=== PATIENT | female | born 1965 | race Caucasian/White ===

== ENCOUNTER 2020-08-16 12:53 | Inpatient (IN) | payer OTHER, SELFPAY ==
[~2020-08-16] VITALS: Ht 170.2 cm; Wt 74.8 kg
[2020-08-16 15:36] LABS: HEMOGLOBIN 14.4 gm/dl (12.3-15.3); RED BLOOD COUNT 4.5 M/UL (4.00-5.10)
[2020-08-16 15:58] LABS: BUN/CREATININE RATIO 10 (0-10)
[2020-08-17 04:46] LABS: HEMOGLOBIN 12.1 gm/dl (12.3-15.3); RED BLOOD COUNT 3.85 M/UL (4.00-5.10)
[2020-08-17 04:53] LABS: BUN/CREATININE RATIO 11 (0-10)
[2020-08-18 07:01] LABS: HEMOGLOBIN 12.7 gm/dl (12.3-15.3); RED BLOOD COUNT 4.14 M/UL (4.00-5.10); WHITE BLOOD COUNT 10.7 K/UL (4.5-11.0)
[2020-08-18 07:29] LABS: BUN/CREATININE RATIO 10 (0-10)
[2020-08-19 05:41] LABS: BUN/CREATININE RATIO 10 (0-10)
[2020-08-20 07:58] LABS: BUN/CREATININE RATIO 9 (0-10)
--- NOTE | 2020-08-21 02:14 | NUR ---
2100- ASKED PATIENT IF SHE WANTED ME TO GO AHEAD AND UNWRAP AND APPLY MORE BETADINE TO HER FOOT AND REWRAP IT, SHE STATES SHE WOULD RATHER WAIT UNTIL IN THE MORNING.
[2020-08-21 03:42] LABS: HEMOGLOBIN 12.1 gm/dl (12.3-15.3); RED BLOOD COUNT 3.87 M/UL (4.00-5.10); WHITE BLOOD COUNT 9.5 K/UL (4.5-11.0)
[2020-08-21 04:11] LABS: BUN/CREATININE RATIO 7 (0-10)
--- NOTE | 2020-08-21 17:18 | NUR ---
REPORT GIVEN TO [facility] ADMITTING NURSE FOR ICU.
[2020-08-22 05:32] LABS: HEMOGLOBIN 10.9 gm/dl (12.3-15.3); RED BLOOD COUNT 3.53 M/UL (4.00-5.10)
[2020-08-22 05:41] LABS: BUN/CREATININE RATIO 8 (0-10)
[2020-08-22] MEDS ORDERED: NICOTINE PATCH1 EAC1 TD (15:57)
[2020-08-22] MEDS ORDERED: LORTAB 7.5-3251 EACH PO (15:57)
[2020-08-22] MEDS ORDERED: CRESTOR 10 MG T10 MG PO (15:57)
[2020-08-22] MEDS ORDERED: ASPIRIN EC81 MG PO (15:57)
[2020-08-22] MEDS ORDERED: CLOPIDOGREL75 MG PO (15:57)
[2020-08-22] MEDS ORDERED: LISINOPRIL10 MG PO (15:57)
[2020-08-22] MEDS ORDERED: LANTUS INS100 UTS/M1 SC (15:57)
[2020-08-23 05:07] LABS: HEMOGLOBIN 11.6 gm/dl (12.3-15.3); RED BLOOD COUNT 3.7 M/UL (4.00-5.10)
[2020-08-23 05:24] LABS: BUN/CREATININE RATIO 15 (0-10)
[2020-08-23] MEDS ORDERED: ROCEPHIN 1 GM AD1 GM IV (10:18)
[2020-08-23] MEDS ORDERED: ZYVOX600 MG PO (10:18)
== END 2020-08-23 16:29 | disposition home or self-care (01) | DRG 270 ==
LOC: ER1 12:53 → CDU 16:00 → M/S 16:00 → 2 EAST 08-21 16:25 → CCU 08-22 09:35
PROVIDERS: Emergency Medicine; Family Medicine; Physician Assistant Medical; Surgery; ADMIT Internal Medicine Infectious Disease
PROC: 04CK3ZZ Extirpation of Matter from Right Femoral Artery, Percutaneous Approach (ICD-10-PCS; 2020-08-21)
PROC: 0Y6T0Z1 Detachment at Right 3rd Toe, High, Open Approach (ICD-10-PCS; 2020-08-21)
PROC: 04CM3ZZ Extirpation of Matter from Right Popliteal Artery, Percutaneous Approach (ICD-10-PCS; 2020-08-21)
PROC: 047K3Z1 Dilation of Right Femoral Artery using Drug-Coated Balloon, Percutaneous Approach (ICD-10-PCS; 2020-08-21)
PROC: 047M3Z1 Dilation of Right Popliteal Artery using Drug-Coated Balloon, Percutaneous Approach (ICD-10-PCS; 2020-08-21)
PROC: 047P3ZZ Dilation of Right Anterior Tibial Artery, Percutaneous Approach (ICD-10-PCS; 2020-08-21)
PROC: B41FYZZ Fluoroscopy of Right Lower Extremity Arteries using Other Contrast (ICD-10-PCS; 2020-08-21)
PROC: B41GYZZ Fluoroscopy of Left Lower Extremity Arteries using Other Contrast (ICD-10-PCS; principal; 2020-08-21 10:15)
PROC: 02HV33Z Insertion of Infusion Device into Superior Vena Cava, Percutaneous Approach (ICD-10-PCS; 2020-08-23)
PROC: B548ZZA Ultrasonography of Superior Vena Cava, Guidance (ICD-10-PCS; 2020-08-23)
DX: E11.52 Type 2 diabetes mellitus with diabetic peripheral angiopathy with gangrene (principal); A48.0 Gas gangrene; M86.8X7 Other osteomyelitis, ankle and foot; E11.65 Type 2 diabetes mellitus with hyperglycemia; F17.210 Nicotine dependence, cigarettes, uncomplicated; I16.0 Hypertensive urgency; L03.031 Cellulitis of right toe; Z83.3 Family history of diabetes mellitus; Z82.49 Family history of ischemic heart disease and other diseases of the circulatory system; Z91.19 Patient's noncompliance with other medical treatment and regimen; E11.69 Type 2 diabetes mellitus with other specified complication; Z20.828 Contact with and (suspected) exposure to other viral communicable diseases; Z90.49 Acquired absence of other specified parts of digestive tract
CPT/HCPCS: 36415; 71045; 73630; 75635; 76000; 80048; 80053; 80061; 82962; 83036; 83605; 83735; 85025; 85027; 85652; 86140; 86850; 86900; 86901; 87040; 87070; 87205; 93005; 93925; 96365; 96366; 96368; 97162; 97165; 99285; C1714; C1725; C1769; C1887; C2623; J0696; J1580; J1644; J2001; J2250; J2270; J2543; J2704; J2720; J3010; J3370; J7030; J7040; J7050; J7120; Q9962; Q9967; U0002

== ENCOUNTER → 2020-08-24 | Outpatient (CLI) | payer OTHER, SELFPAY ==
[~2020-08-24] VITALS: Ht 170.2 cm; Wt 74.8 kg
[~2020-08-24] MED LIST: ASPIRIN EC81 MG PO; CLOPIDOGREL75 MG PO; CRESTOR 10 MG T10 MG PO; LANTUS INS100 UTS/M1 SC; LISINOPRIL10 MG PO; LORTAB 7.5-3251 EACH PO; NICOTINE PATCH1 EAC1 TD; ROCEPHIN 1 GM AD1 GM IV; ZYVOX600 MG PO
== END ==
LOC: OPSV 07:52
DX: M86.8X7 Other osteomyelitis, ankle and foot (principal); I96 Gangrene, not elsewhere classified
CPT/HCPCS: 96365; J0696

== ENCOUNTER → 2020-08-25 | Outpatient (CLI) | payer OTHER, SELFPAY ==
[~2020-08-25] VITALS: Ht 170.2 cm; Wt 74.8 kg
== END ==
LOC: OPSV 07:39
DX: M86.8X7 Other osteomyelitis, ankle and foot (principal); I96 Gangrene, not elsewhere classified
CPT/HCPCS: 96365; J0696

== ENCOUNTER → 2020-08-26 | Outpatient (CLI) | payer OTHER, SELFPAY ==
[~2020-08-26] VITALS: Ht 170.2 cm; Wt 74.8 kg
== END ==
LOC: OPSV 07:38
DX: M86.8X7 Other osteomyelitis, ankle and foot (principal); I96 Gangrene, not elsewhere classified
CPT/HCPCS: 96365; J0696

== ENCOUNTER → 2020-08-27 | Outpatient (CLI) | payer OTHER, SELFPAY | LOC: WCC 09:48 | DX: I73.9 Peripheral vascular disease, unspecified (principal); L97.516 Non-pressure chronic ulcer of other part of right foot with bone involvement without evidence of necrosis; E08.21 Diabetes mellitus due to underlying condition with diabetic nephropathy; F17.291 Nicotine dependence, other tobacco product, in remission | CPT/HCPCS: G0463 ==

== ENCOUNTER → 2020-08-27 | Outpatient (CLI) | payer OTHER, SELFPAY ==
[~2020-08-27] VITALS: Ht 170.2 cm; Wt 74.8 kg
== END ==
LOC: OPSV 07:27
DX: M86.8X7 Other osteomyelitis, ankle and foot (principal); I96 Gangrene, not elsewhere classified
CPT/HCPCS: 96365; J0696

== ENCOUNTER → 2020-08-28 | Outpatient (CLI) | payer OTHER, SELFPAY | LOC: OPSV 08:00 | DX: M86.8X7 Other osteomyelitis, ankle and foot (principal); I96 Gangrene, not elsewhere classified | CPT/HCPCS: 96365; J0696 ==

== ENCOUNTER → 2020-08-29 | Outpatient (CLI) | payer OTHER, SELFPAY | LOC: WCC 08:04 | DX: T81.30XA Disruption of wound, unspecified, initial encounter (principal); E11.40 Type 2 diabetes mellitus with diabetic neuropathy, unspecified; Y83.5 Amputation of limb(s) as the cause of abnormal reaction of the patient, or of later complication, without mention of misadventure at the time of the procedure | CPT/HCPCS: G0463 ==

== ENCOUNTER → 2020-08-29 | Outpatient (CLI) | payer OTHER, SELFPAY ==
[~2020-08-29] VITALS: Ht 170.2 cm; Wt 74.8 kg
== END ==
LOC: OPSV 07:27
DX: M86.8X7 Other osteomyelitis, ankle and foot (principal); I96 Gangrene, not elsewhere classified
CPT/HCPCS: 96365

== ENCOUNTER → 2020-08-30 | Outpatient (CLI) | payer OTHER, SELFPAY | LOC: OPSV 07:25 | DX: M86.8X7 Other osteomyelitis, ankle and foot (principal); I96 Gangrene, not elsewhere classified | CPT/HCPCS: 96365; J0696 ==

== ENCOUNTER → 2020-08-31 | Outpatient (CLI) | payer OTHER, SELFPAY | LOC: WCC 08:16 | DX: E08.21 Diabetes mellitus due to underlying condition with diabetic nephropathy (principal); E08.621 Diabetes mellitus due to underlying condition with foot ulcer; L97.516 Non-pressure chronic ulcer of other part of right foot with bone involvement without evidence of necrosis; I73.9 Peripheral vascular disease, unspecified; F17.291 Nicotine dependence, other tobacco product, in remission | CPT/HCPCS: G0463 ==

== ENCOUNTER → 2020-08-31 | Outpatient (CLI) | payer OTHER, SELFPAY ==
[~2020-08-31] VITALS: Ht 170.2 cm; Wt 74.8 kg
== END ==
LOC: OPSV 06:56
DX: M86.8X7 Other osteomyelitis, ankle and foot (principal); I96 Gangrene, not elsewhere classified
CPT/HCPCS: 96365; J0696

== ENCOUNTER → 2020-09-01 | Outpatient (CLI) | payer OTHER, SELFPAY ==
[~2020-09-01] VITALS: Ht 170.2 cm; Wt 74.8 kg
== END ==
LOC: OPSV 07:09
DX: M86.8X7 Other osteomyelitis, ankle and foot (principal); I96 Gangrene, not elsewhere classified
CPT/HCPCS: 96365; J0696

== ENCOUNTER → 2020-09-02 | Outpatient (CLI) | payer OTHER, SELFPAY ==
[~2020-09-02] VITALS: Ht 170.2 cm; Wt 74.8 kg
== END ==
LOC: OPSV 07:38
DX: M86.8X7 Other osteomyelitis, ankle and foot (principal); I96 Gangrene, not elsewhere classified
CPT/HCPCS: 96365; J0696

== ENCOUNTER → 2020-09-03 | Outpatient (CLI) | payer OTHER ==
[~2020-09-03] VITALS: Ht 170.2 cm; Wt 74.8 kg
== END ==
LOC: OPSV 07:31
DX: M86.8X7 Other osteomyelitis, ankle and foot (principal); I96 Gangrene, not elsewhere classified
CPT/HCPCS: 96365; J0696

== ENCOUNTER → 2020-09-03 | Outpatient (CLI) | payer OTHER | LOC: WCC 08:12 | PROC: 0KBV0ZZ Excision of Right Foot Muscle, Open Approach (ICD-10-PCS; principal; 2020-09-03) | DX: T87.81 Dehiscence of amputation stump (principal); T87.53 Necrosis of amputation stump, right lower extremity; E11.621 Type 2 diabetes mellitus with foot ulcer; L97.514 Non-pressure chronic ulcer of other part of right foot with necrosis of bone; E11.52 Type 2 diabetes mellitus with diabetic peripheral angiopathy with gangrene; I96 Gangrene, not elsewhere classified; E11.21 Type 2 diabetes mellitus with diabetic nephropathy; E11.40 Type 2 diabetes mellitus with diabetic neuropathy, unspecified; I10 Essential (primary) hypertension; F17.291 Nicotine dependence, other tobacco product, in remission; Z89.421 Acquired absence of other right toe(s); Z79.51 Long term (current) use of inhaled steroids; Y83.5 Amputation of limb(s) as the cause of abnormal reaction of the patient, or of later complication, without mention of misadventure at the time of the procedure ==

== ENCOUNTER → 2020-09-04 | Outpatient (CLI) | payer OTHER, SELFPAY ==
[~2020-09-04] VITALS: Ht 170.2 cm; Wt 74.8 kg
== END ==
LOC: OPSV 07:41
DX: M86.8X7 Other osteomyelitis, ankle and foot (principal); I96 Gangrene, not elsewhere classified
CPT/HCPCS: 96365; J0696

== ENCOUNTER → 2020-09-05 | Outpatient (CLI) | payer OTHER, SELFPAY ==
[~2020-09-05] VITALS: Ht 170.2 cm; Wt 74.8 kg
== END ==
LOC: OPSV 07:30
DX: M86.8X7 Other osteomyelitis, ankle and foot (principal); I96 Gangrene, not elsewhere classified
CPT/HCPCS: 96365; J0696

== ENCOUNTER → 2020-09-06 | Outpatient (CLI) | payer OTHER, SELFPAY ==
[~2020-09-06] VITALS: Ht 170.2 cm; Wt 74.8 kg
== END ==
LOC: OPSV 07:43
DX: M86.8X7 Other osteomyelitis, ankle and foot (principal); I96 Gangrene, not elsewhere classified
CPT/HCPCS: 96365; J0696

== ENCOUNTER → 2020-09-07 | Outpatient (CLI) | payer OTHER, SELFPAY ==
[~2020-09-07] VITALS: Ht 170.2 cm; Wt 74.8 kg
== END ==
LOC: OPSV 07:32
DX: M86.8X7 Other osteomyelitis, ankle and foot (principal); I96 Gangrene, not elsewhere classified
CPT/HCPCS: 96365; J0696

== ENCOUNTER → 2020-09-08 | Outpatient (CLI) | payer OTHER, SELFPAY | LOC: OPSV 07:16 | DX: M86.8X7 Other osteomyelitis, ankle and foot (principal); I96 Gangrene, not elsewhere classified | CPT/HCPCS: 96365; J0696 ==

== ENCOUNTER → 2020-09-09 | Outpatient (CLI) | payer OTHER, SELFPAY ==
[~2020-09-09] VITALS: Ht 170.2 cm; Wt 74.8 kg
== END ==
LOC: OPSV 07:30
DX: M86.8X7 Other osteomyelitis, ankle and foot (principal); I96 Gangrene, not elsewhere classified
CPT/HCPCS: 96365; J0696

== ENCOUNTER → 2020-09-10 | Outpatient (CLI) | payer OTHER | LOC: WCC 08:25 | PROC: 0KBV0ZZ Excision of Right Foot Muscle, Open Approach (ICD-10-PCS; principal; 2020-09-10) | DX: T81.31XA Disruption of external operation (surgical) wound, not elsewhere classified, initial encounter (principal); E11.621 Type 2 diabetes mellitus with foot ulcer; L97.514 Non-pressure chronic ulcer of other part of right foot with necrosis of bone; E11.52 Type 2 diabetes mellitus with diabetic peripheral angiopathy with gangrene; I96 Gangrene, not elsewhere classified; I10 Essential (primary) hypertension; E11.40 Type 2 diabetes mellitus with diabetic neuropathy, unspecified; F17.291 Nicotine dependence, other tobacco product, in remission; Z79.899 Other long term (current) drug therapy; Y83.8 Other surgical procedures as the cause of abnormal reaction of the patient, or of later complication, without mention of misadventure at the time of the procedure | CPT/HCPCS: 87070; 87205 ==

== ENCOUNTER → 2020-09-10 | Outpatient (CLI) | payer OTHER, SELFPAY | LOC: OPSV 07:44 | DX: M86.8X7 Other osteomyelitis, ankle and foot (principal); I96 Gangrene, not elsewhere classified | CPT/HCPCS: 96365; J0696 ==

== ENCOUNTER → 2020-09-11 | Outpatient (CLI) | payer OTHER, SELFPAY ==
[~2020-09-11] VITALS: Ht 170.2 cm; Wt 74.8 kg
== END ==
LOC: OPSV 07:36
DX: I96 Gangrene, not elsewhere classified (principal); M86.8X7 Other osteomyelitis, ankle and foot
CPT/HCPCS: 96365; J0696

== ENCOUNTER → 2020-09-12 | Outpatient (CLI) | payer OTHER, SELFPAY ==
[~2020-09-12] VITALS: Ht 170.2 cm; Wt 74.8 kg
== END ==
LOC: OPSV 07:39
DX: I96 Gangrene, not elsewhere classified (principal); M86.8X7 Other osteomyelitis, ankle and foot
CPT/HCPCS: 96365; J0696

== ENCOUNTER → 2020-09-13 | Outpatient (CLI) | payer OTHER, SELFPAY | LOC: OPSV 07:34 | DX: M86.8X7 Other osteomyelitis, ankle and foot (principal); I96 Gangrene, not elsewhere classified | CPT/HCPCS: 96365; J0696 ==

== ENCOUNTER → 2020-09-14 | Outpatient (CLI) | payer OTHER, SELFPAY ==
[~2020-09-14] VITALS: Ht 170.2 cm; Wt 74.8 kg
== END ==
LOC: OPSV 08:00
DX: M86.8X7 Other osteomyelitis, ankle and foot (principal); I96 Gangrene, not elsewhere classified
CPT/HCPCS: 96365; J0696

== ENCOUNTER → 2020-09-15 | Outpatient (CLI) | payer OTHER, SELFPAY | LOC: OPSV 07:24 | DX: M86.8X7 Other osteomyelitis, ankle and foot (principal); I96 Gangrene, not elsewhere classified | CPT/HCPCS: 96365 ==

== ENCOUNTER → 2020-09-16 | Outpatient (CLI) | payer OTHER, SELFPAY | LOC: OPSV 08:00 | DX: I96 Gangrene, not elsewhere classified (principal); M86.8X7 Other osteomyelitis, ankle and foot | CPT/HCPCS: 96365; J0696 ==

== ENCOUNTER → 2020-09-17 | Outpatient (CLI) | payer OTHER, SELFPAY | LOC: OPSV 07:38 | DX: M86.8X7 Other osteomyelitis, ankle and foot (principal); I96 Gangrene, not elsewhere classified | CPT/HCPCS: 96365; J0696 ==

== ENCOUNTER → 2020-09-17 | Outpatient (CLI) | payer OTHER | LOC: WCC 08:22 | DX: T81.31XA Disruption of external operation (surgical) wound, not elsewhere classified, initial encounter (principal); E11.621 Type 2 diabetes mellitus with foot ulcer; L97.516 Non-pressure chronic ulcer of other part of right foot with bone involvement without evidence of necrosis; E11.51 Type 2 diabetes mellitus with diabetic peripheral angiopathy without gangrene; F17.291 Nicotine dependence, other tobacco product, in remission ==

== ENCOUNTER → 2020-09-18 | Outpatient (CLI) | payer OTHER ==
[~2020-09-18] VITALS: Ht 170.2 cm; Wt 74.8 kg
== END ==
LOC: OPSV 07:46
DX: M86.8X7 Other osteomyelitis, ankle and foot (principal); I96 Gangrene, not elsewhere classified
CPT/HCPCS: 96365; J0696

== ENCOUNTER → 2020-09-19 | Outpatient (CLI) | payer OTHER ==
[~2020-09-19] VITALS: Ht 170.2 cm; Wt 74.8 kg
== END ==
LOC: OPSV 07:22
DX: M86.8X7 Other osteomyelitis, ankle and foot (principal); I96 Gangrene, not elsewhere classified
CPT/HCPCS: 96365; J0696

== ENCOUNTER → 2020-09-20 | Outpatient (CLI) | payer OTHER | LOC: OPSV 07:26 | DX: M86.8X7 Other osteomyelitis, ankle and foot (principal); I96 Gangrene, not elsewhere classified | CPT/HCPCS: 96365; J0696 ==

== ENCOUNTER → 2020-09-21 | Outpatient (CLI) | payer OTHER ==
[~2020-09-21] VITALS: Ht 170.2 cm; Wt 74.8 kg
== END ==
LOC: OPSV 07:16
DX: M86.8X7 Other osteomyelitis, ankle and foot (principal); I96 Gangrene, not elsewhere classified
CPT/HCPCS: 96365; J0696

== ENCOUNTER → 2020-09-22 | Outpatient (CLI) | payer OTHER ==
[~2020-09-22] VITALS: Ht 170.2 cm; Wt 74.8 kg
== END ==
LOC: OPSV 07:23
DX: M86.8X7 Other osteomyelitis, ankle and foot (principal); I96 Gangrene, not elsewhere classified
CPT/HCPCS: 96365; J0696

== ENCOUNTER → 2020-09-24 | Outpatient (CLI) | payer OTHER | LOC: WCC 10:00 | PROC: 0KBV0ZZ Excision of Right Foot Muscle, Open Approach (ICD-10-PCS; principal; 2020-09-24) | DX: T87.81 Dehiscence of amputation stump (principal); T87.53 Necrosis of amputation stump, right lower extremity; E11.621 Type 2 diabetes mellitus with foot ulcer; L97.514 Non-pressure chronic ulcer of other part of right foot with necrosis of bone; E11.52 Type 2 diabetes mellitus with diabetic peripheral angiopathy with gangrene; I96 Gangrene, not elsewhere classified; E11.40 Type 2 diabetes mellitus with diabetic neuropathy, unspecified; E11.21 Type 2 diabetes mellitus with diabetic nephropathy; I10 Essential (primary) hypertension; F17.291 Nicotine dependence, other tobacco product, in remission; Z89.421 Acquired absence of other right toe(s); Z79.1 Long term (current) use of non-steroidal anti-inflammatories (NSAID); Y83.5 Amputation of limb(s) as the cause of abnormal reaction of the patient, or of later complication, without mention of misadventure at the time of the procedure ==

== ENCOUNTER → 2020-10-01 | Outpatient (CLI) | payer OTHER | LOC: WCC 09:59 | PROC: 0KBV0ZZ Excision of Right Foot Muscle, Open Approach (ICD-10-PCS; principal; 2020-10-01) | DX: T87.81 Dehiscence of amputation stump (principal); T87.53 Necrosis of amputation stump, right lower extremity; E11.52 Type 2 diabetes mellitus with diabetic peripheral angiopathy with gangrene; I96 Gangrene, not elsewhere classified; I10 Essential (primary) hypertension; E11.40 Type 2 diabetes mellitus with diabetic neuropathy, unspecified; Z79.52 Long term (current) use of systemic steroids; Y83.5 Amputation of limb(s) as the cause of abnormal reaction of the patient, or of later complication, without mention of misadventure at the time of the procedure ==

== ENCOUNTER 2020-10-02 10:52 | Emergency (ER) | payer OTHER ==
[2020-10-02 12:15] LABS: HEMOGLOBIN 10.9 gm/dl (12.3-15.3); RED BLOOD COUNT 3.62 M/UL (4.00-5.10); WHITE BLOOD COUNT 6.7 K/UL (4.5-11.0)
[2020-10-02 12:40] LABS: BUN/CREATININE RATIO 19 (0-10)
== END 2020-10-02 13:27 | disposition home or self-care (01) ==
LOC: ER1 10:52
PROVIDERS: Family Medicine
DX: I95.9 Hypotension, unspecified (principal); I10 Essential (primary) hypertension; E11.9 Type 2 diabetes mellitus without complications; E78.5 Hyperlipidemia, unspecified; Z79.82 Long term (current) use of aspirin; Z79.899 Other long term (current) drug therapy
CPT/HCPCS: 36415; 71045; 80053; 82550; 82553; 83874; 84484; 85025; 85610; 85730; 93005; 99285

== ENCOUNTER → 2020-10-15 | Outpatient (CLI) | payer OTHER | LOC: WCC 10:00 | PROC: 0KBV0ZZ Excision of Right Foot Muscle, Open Approach (ICD-10-PCS; principal; 2020-10-15) | DX: T87.81 Dehiscence of amputation stump (principal); T87.53 Necrosis of amputation stump, right lower extremity; E11.52 Type 2 diabetes mellitus with diabetic peripheral angiopathy with gangrene; I96 Gangrene, not elsewhere classified; E11.40 Type 2 diabetes mellitus with diabetic neuropathy, unspecified; E11.621 Type 2 diabetes mellitus with foot ulcer; L97.514 Non-pressure chronic ulcer of other part of right foot with necrosis of bone; E11.21 Type 2 diabetes mellitus with diabetic nephropathy; I10 Essential (primary) hypertension; F17.291 Nicotine dependence, other tobacco product, in remission; Z89.421 Acquired absence of other right toe(s); Z79.52 Long term (current) use of systemic steroids; Y83.5 Amputation of limb(s) as the cause of abnormal reaction of the patient, or of later complication, without mention of misadventure at the time of the procedure ==

== ENCOUNTER → 2020-10-22 | Outpatient (CLI) | payer OTHER | LOC: WCC 10:00 | DX: E11.621 Type 2 diabetes mellitus with foot ulcer (principal); L97.522 Non-pressure chronic ulcer of other part of left foot with fat layer exposed; L97.829 Non-pressure chronic ulcer of other part of left lower leg with unspecified severity; L97.819 Non-pressure chronic ulcer of other part of right lower leg with unspecified severity; I10 Essential (primary) hypertension; G47.30 Sleep apnea, unspecified ==

== ENCOUNTER → 2020-10-22 | Outpatient (CLI) | payer OTHER | LOC: DTC 10:03 | DX: E11.9 Type 2 diabetes mellitus without complications (principal) | CPT/HCPCS: G0108 ==

== ENCOUNTER → 2020-10-29 | Outpatient (CLI) | payer OTHER | LOC: WCC 09:58 | PROC: 0KBV0ZZ Excision of Right Foot Muscle, Open Approach (ICD-10-PCS; principal; 2020-10-29) | DX: T87.81 Dehiscence of amputation stump (principal); T87.53 Necrosis of amputation stump, right lower extremity; E11.52 Type 2 diabetes mellitus with diabetic peripheral angiopathy with gangrene; I96 Gangrene, not elsewhere classified; E11.621 Type 2 diabetes mellitus with foot ulcer; L97.513 Non-pressure chronic ulcer of other part of right foot with necrosis of muscle; E11.40 Type 2 diabetes mellitus with diabetic neuropathy, unspecified; E11.21 Type 2 diabetes mellitus with diabetic nephropathy; I10 Essential (primary) hypertension; F17.291 Nicotine dependence, other tobacco product, in remission; Z79.52 Long term (current) use of systemic steroids; Y83.5 Amputation of limb(s) as the cause of abnormal reaction of the patient, or of later complication, without mention of misadventure at the time of the procedure ==

== ENCOUNTER → 2020-11-05 | Outpatient (CLI) | payer OTHER | LOC: WCC 09:54 | PROC: 0KBV0ZZ Excision of Right Foot Muscle, Open Approach (ICD-10-PCS; principal; 2020-11-05) | DX: T87.81 Dehiscence of amputation stump (principal); T87.53 Necrosis of amputation stump, right lower extremity; E11.621 Type 2 diabetes mellitus with foot ulcer; L97.513 Non-pressure chronic ulcer of other part of right foot with necrosis of muscle; E11.52 Type 2 diabetes mellitus with diabetic peripheral angiopathy with gangrene; I96 Gangrene, not elsewhere classified; E11.21 Type 2 diabetes mellitus with diabetic nephropathy; F17.291 Nicotine dependence, other tobacco product, in remission; I10 Essential (primary) hypertension; Z79.899 Other long term (current) drug therapy; Y83.5 Amputation of limb(s) as the cause of abnormal reaction of the patient, or of later complication, without mention of misadventure at the time of the procedure ==

== ENCOUNTER → 2020-11-12 | Outpatient (CLI) | payer OTHER | LOC: WCC 10:00 | PROC: 0KBV0ZZ Excision of Right Foot Muscle, Open Approach (ICD-10-PCS; principal; 2020-11-12) | DX: T87.81 Dehiscence of amputation stump (principal); T87.53 Necrosis of amputation stump, right lower extremity; E11.621 Type 2 diabetes mellitus with foot ulcer; L97.512 Non-pressure chronic ulcer of other part of right foot with fat layer exposed; E11.52 Type 2 diabetes mellitus with diabetic peripheral angiopathy with gangrene; I96 Gangrene, not elsewhere classified; F17.291 Nicotine dependence, other tobacco product, in remission; I10 Essential (primary) hypertension; E11.40 Type 2 diabetes mellitus with diabetic neuropathy, unspecified; E11.21 Type 2 diabetes mellitus with diabetic nephropathy; Z79.52 Long term (current) use of systemic steroids; Y83.5 Amputation of limb(s) as the cause of abnormal reaction of the patient, or of later complication, without mention of misadventure at the time of the procedure ==

== ENCOUNTER → 2020-11-19 | Outpatient (CLI) | payer OTHER | LOC: WCC 10:30 | PROC: 0KBV0ZZ Excision of Right Foot Muscle, Open Approach (ICD-10-PCS; principal; 2020-11-19) | DX: T81.31XA Disruption of external operation (surgical) wound, not elsewhere classified, initial encounter (principal); E11.621 Type 2 diabetes mellitus with foot ulcer; L97.512 Non-pressure chronic ulcer of other part of right foot with fat layer exposed; E11.52 Type 2 diabetes mellitus with diabetic peripheral angiopathy with gangrene; I96 Gangrene, not elsewhere classified; E11.21 Type 2 diabetes mellitus with diabetic nephropathy; E11.40 Type 2 diabetes mellitus with diabetic neuropathy, unspecified; F17.291 Nicotine dependence, other tobacco product, in remission; Z79.52 Long term (current) use of systemic steroids; Y83.8 Other surgical procedures as the cause of abnormal reaction of the patient, or of later complication, without mention of misadventure at the time of the procedure ==

== ENCOUNTER → 2020-11-26 | Outpatient (CLI) | payer OTHER | LOC: WCC 14:08 | PROC: 0JBQ0ZZ Excision of Right Foot Subcutaneous Tissue and Fascia, Open Approach (ICD-10-PCS; principal; 2020-11-26) | DX: T87.81 Dehiscence of amputation stump (principal); T87.53 Necrosis of amputation stump, right lower extremity; E11.52 Type 2 diabetes mellitus with diabetic peripheral angiopathy with gangrene; I96 Gangrene, not elsewhere classified; S81.802A Unspecified open wound, left lower leg, initial encounter; E11.40 Type 2 diabetes mellitus with diabetic neuropathy, unspecified; I10 Essential (primary) hypertension; Z79.52 Long term (current) use of systemic steroids; Y83.5 Amputation of limb(s) as the cause of abnormal reaction of the patient, or of later complication, without mention of misadventure at the time of the procedure; X58.XXXA Exposure to other specified factors, initial encounter ==

== ENCOUNTER → 2020-12-03 | Outpatient (CLI) | payer OTHER | LOC: WCC 09:50 | DX: E11.621 Type 2 diabetes mellitus with foot ulcer (principal); T87.81 Dehiscence of amputation stump; S81.802A Unspecified open wound, left lower leg, initial encounter; E11.21 Type 2 diabetes mellitus with diabetic nephropathy; E11.51 Type 2 diabetes mellitus with diabetic peripheral angiopathy without gangrene; Z89.421 Acquired absence of other right toe(s) ==

== ENCOUNTER → 2020-12-11 | Outpatient (CLI) | payer OTHER | LOC: WCC 09:24 | DX: E11.51 Type 2 diabetes mellitus with diabetic peripheral angiopathy without gangrene (principal); L97.515 Non-pressure chronic ulcer of other part of right foot with muscle involvement without evidence of necrosis; L97.516 Non-pressure chronic ulcer of other part of right foot with bone involvement without evidence of necrosis; F17.291 Nicotine dependence, other tobacco product, in remission; I10 Essential (primary) hypertension ==

== ENCOUNTER → 2020-12-17 | Outpatient (CLI) | payer OTHER | LOC: KOH-I 14:17 | DX: I73.9 Peripheral vascular disease, unspecified (principal); L97.516 Non-pressure chronic ulcer of other part of right foot with bone involvement without evidence of necrosis; E08.21 Diabetes mellitus due to underlying condition with diabetic nephropathy; F17.291 Nicotine dependence, other tobacco product, in remission | CPT/HCPCS: 93926 ==

== ENCOUNTER → 2020-12-17 | Outpatient (CLI) | payer OTHER | LOC: WCC 09:54 | DX: E11.621 Type 2 diabetes mellitus with foot ulcer (principal); E11.51 Type 2 diabetes mellitus with diabetic peripheral angiopathy without gangrene; L97.515 Non-pressure chronic ulcer of other part of right foot with muscle involvement without evidence of necrosis; L97.516 Non-pressure chronic ulcer of other part of right foot with bone involvement without evidence of necrosis; F17.291 Nicotine dependence, other tobacco product, in remission | CPT/HCPCS: 93926 ==

== ENCOUNTER → 2020-12-31 | Outpatient (CLI) | payer OTHER | LOC: WCC 11:00 | DX: E11.621 Type 2 diabetes mellitus with foot ulcer (principal); L97.515 Non-pressure chronic ulcer of other part of right foot with muscle involvement without evidence of necrosis; T87.81 Dehiscence of amputation stump; E11.51 Type 2 diabetes mellitus with diabetic peripheral angiopathy without gangrene; E11.21 Type 2 diabetes mellitus with diabetic nephropathy; F17.291 Nicotine dependence, other tobacco product, in remission; Z89.421 Acquired absence of other right toe(s); Z79.52 Long term (current) use of systemic steroids ==

== ENCOUNTER → 2021-01-07 | Outpatient (CLI) | payer OTHER | LOC: WCC 10:48 | DX: E11.621 Type 2 diabetes mellitus with foot ulcer (principal); T87.81 Dehiscence of amputation stump; L97.516 Non-pressure chronic ulcer of other part of right foot with bone involvement without evidence of necrosis; L97.515 Non-pressure chronic ulcer of other part of right foot with muscle involvement without evidence of necrosis; E11.51 Type 2 diabetes mellitus with diabetic peripheral angiopathy without gangrene; F17.291 Nicotine dependence, other tobacco product, in remission; Z89.421 Acquired absence of other right toe(s); Z79.899 Other long term (current) drug therapy ==

== ENCOUNTER → 2021-01-14 | Outpatient (CLI) | payer OTHER | LOC: WCC 11:19 | DX: T87.81 Dehiscence of amputation stump (principal); E11.621 Type 2 diabetes mellitus with foot ulcer; L97.516 Non-pressure chronic ulcer of other part of right foot with bone involvement without evidence of necrosis; L97.515 Non-pressure chronic ulcer of other part of right foot with muscle involvement without evidence of necrosis; E11.51 Type 2 diabetes mellitus with diabetic peripheral angiopathy without gangrene; F17.291 Nicotine dependence, other tobacco product, in remission; Z89.421 Acquired absence of other right toe(s); Z79.899 Other long term (current) drug therapy ==

== ENCOUNTER → 2021-01-31 | Outpatient (CLI) | payer OTHER | LOC: WCC 11:05 | DX: E11.621 Type 2 diabetes mellitus with foot ulcer (principal); T87.81 Dehiscence of amputation stump; L97.512 Non-pressure chronic ulcer of other part of right foot with fat layer exposed; E11.51 Type 2 diabetes mellitus with diabetic peripheral angiopathy without gangrene; E11.21 Type 2 diabetes mellitus with diabetic nephropathy; F17.291 Nicotine dependence, other tobacco product, in remission; Z89.421 Acquired absence of other right toe(s); Z79.84 Long term (current) use of oral hypoglycemic drugs; Z79.82 Long term (current) use of aspirin; Z79.02 Long term (current) use of antithrombotics/antiplatelets; Z79.899 Other long term (current) drug therapy ==

== ENCOUNTER → 2021-02-14 | Outpatient (CLI) | payer OTHER | LOC: RAD 09:47 | DX: E11.621 Type 2 diabetes mellitus with foot ulcer (principal); E11.51 Type 2 diabetes mellitus with diabetic peripheral angiopathy without gangrene; L97.516 Non-pressure chronic ulcer of other part of right foot with bone involvement without evidence of necrosis; L97.515 Non-pressure chronic ulcer of other part of right foot with muscle involvement without evidence of necrosis; E11.21 Type 2 diabetes mellitus with diabetic nephropathy; F17.291 Nicotine dependence, other tobacco product, in remission | CPT/HCPCS: 73630 ==

== ENCOUNTER → 2021-02-15 | Outpatient (CLI) | payer OTHER | LOC: WCC 11:27 | DX: T87.81 Dehiscence of amputation stump (principal); E11.51 Type 2 diabetes mellitus with diabetic peripheral angiopathy without gangrene; E11.21 Type 2 diabetes mellitus with diabetic nephropathy; F17.291 Nicotine dependence, other tobacco product, in remission; Z89.421 Acquired absence of other right toe(s); Z79.84 Long term (current) use of oral hypoglycemic drugs; Z79.82 Long term (current) use of aspirin; Z79.02 Long term (current) use of antithrombotics/antiplatelets; Z79.899 Other long term (current) drug therapy | CPT/HCPCS: G0463 ==

== ENCOUNTER → 2022-01-17 | Outpatient (CLI) | payer OTHER | LOC: LAB 09:51 | DX: I25.10 Atherosclerotic heart disease of native coronary artery without angina pectoris (principal); Z20.822 Contact with and (suspected) exposure to COVID-19 | CPT/HCPCS: U0003 ==

== ENCOUNTER → 2022-03-12 | Outpatient (CLI) | payer OTHER | END | disposition home or self-care (01) | LOC: WCC 07:05 | DX: T81.31XA Disruption of external operation (surgical) wound, not elsewhere classified, initial encounter (principal); I10 Essential (primary) hypertension; E11.622 Type 2 diabetes mellitus with other skin ulcer; E11.51 Type 2 diabetes mellitus with diabetic peripheral angiopathy without gangrene; I25.10 Atherosclerotic heart disease of native coronary artery without angina pectoris; Z79.4 Long term (current) use of insulin; Z95.1 Presence of aortocoronary bypass graft; Z87.891 Personal history of nicotine dependence ==

== ENCOUNTER → 2022-03-18 | Outpatient (CLI) | payer OTHER | END | disposition home or self-care (01) | LOC: WCC 07:35 | DX: T81.31XA Disruption of external operation (surgical) wound, not elsewhere classified, initial encounter (principal); I25.10 Atherosclerotic heart disease of native coronary artery without angina pectoris; I10 Essential (primary) hypertension; E11.622 Type 2 diabetes mellitus with other skin ulcer; E11.51 Type 2 diabetes mellitus with diabetic peripheral angiopathy without gangrene; Z95.1 Presence of aortocoronary bypass graft; Z79.4 Long term (current) use of insulin ==

== ENCOUNTER → 2022-03-26 | Outpatient (CLI) | payer OTHER | LOC: WCC 07:14 | DX: T81.32XA Disruption of internal operation (surgical) wound, not elsewhere classified, initial encounter (principal); I10 Essential (primary) hypertension; E11.622 Type 2 diabetes mellitus with other skin ulcer; I25.10 Atherosclerotic heart disease of native coronary artery without angina pectoris; I73.9 Peripheral vascular disease, unspecified; E11.40 Type 2 diabetes mellitus with diabetic neuropathy, unspecified; Y83.8 Other surgical procedures as the cause of abnormal reaction of the patient, or of later complication, without mention of misadventure at the time of the procedure; Z79.4 Long term (current) use of insulin ==

== ENCOUNTER → 2022-04-03 | Outpatient (CLI) | payer OTHER | LOC: WCC 07:53 | DX: T81.32XA Disruption of internal operation (surgical) wound, not elsewhere classified, initial encounter (principal); I10 Essential (primary) hypertension; E11.622 Type 2 diabetes mellitus with other skin ulcer; I25.10 Atherosclerotic heart disease of native coronary artery without angina pectoris; I73.9 Peripheral vascular disease, unspecified; E11.40 Type 2 diabetes mellitus with diabetic neuropathy, unspecified; Y83.8 Other surgical procedures as the cause of abnormal reaction of the patient, or of later complication, without mention of misadventure at the time of the procedure; Z79.4 Long term (current) use of insulin ==

== ENCOUNTER → 2022-04-10 | Outpatient (CLI) | payer OTHER | LOC: WCC 07:34 | DX: T81.32XA Disruption of internal operation (surgical) wound, not elsewhere classified, initial encounter (principal); I10 Essential (primary) hypertension; E11.622 Type 2 diabetes mellitus with other skin ulcer; I25.10 Atherosclerotic heart disease of native coronary artery without angina pectoris; I73.9 Peripheral vascular disease, unspecified; E11.40 Type 2 diabetes mellitus with diabetic neuropathy, unspecified; Y71.2 Prosthetic and other implants, materials and accessory cardiovascular devices associated with adverse incidents; Y83.8 Other surgical procedures as the cause of abnormal reaction of the patient, or of later complication, without mention of misadventure at the time of the procedure; Z79.4 Long term (current) use of insulin; Z95.1 Presence of aortocoronary bypass graft ==

== ENCOUNTER → 2022-04-17 | Outpatient (CLI) | payer OTHER | LOC: WCC 07:12 | DX: E11.622 Type 2 diabetes mellitus with other skin ulcer (principal); L98.499 Non-pressure chronic ulcer of skin of other sites with unspecified severity; I10 Essential (primary) hypertension; I25.10 Atherosclerotic heart disease of native coronary artery without angina pectoris; I73.9 Peripheral vascular disease, unspecified; B96.4 Proteus (mirabilis) (morganii) as the cause of diseases classified elsewhere; Z79.4 Long term (current) use of insulin | CPT/HCPCS: G0463 ==

== ENCOUNTER → 2022-04-24 | Outpatient (CLI) | payer OTHER | LOC: WCC 07:08 | DX: E11.622 Type 2 diabetes mellitus with other skin ulcer (principal); B96.4 Proteus (mirabilis) (morganii) as the cause of diseases classified elsewhere; I10 Essential (primary) hypertension; I25.10 Atherosclerotic heart disease of native coronary artery without angina pectoris; E11.51 Type 2 diabetes mellitus with diabetic peripheral angiopathy without gangrene; Z79.4 Long term (current) use of insulin | CPT/HCPCS: G0463 ==

== ENCOUNTER → 2022-05-09 | Outpatient (CLI) | payer OTHER | LOC: WCC 07:36 | DX: Z09 Encounter for follow-up examination after completed treatment for conditions other than malignant neoplasm (principal); I10 Essential (primary) hypertension; I25.10 Atherosclerotic heart disease of native coronary artery without angina pectoris; E11.51 Type 2 diabetes mellitus with diabetic peripheral angiopathy without gangrene; B96.4 Proteus (mirabilis) (morganii) as the cause of diseases classified elsewhere; Z79.4 Long term (current) use of insulin; Z86.31 Personal history of diabetic foot ulcer | CPT/HCPCS: G0463 ==